=== PATIENT | male | born 1985 | race Hispanic/Latino ===

== ENCOUNTER 2021-04-06 22:58 | Emergency (ER) | payer OTHER ==
[~2021-04-06] VITALS: Ht 182.9 cm; Wt 66.2 kg
[2021-04-06 23:02] VITALS: BP 126/68
[2021-04-06] MEDS ORDERED: OCTYL 2-CYANOACRYLATE 1 EACH TP ONE ×2 (23:11→23:25)
[2021-04-06] MEDS ORDERED: L.E.T. GEL 3ML SYG TP ONE ×2 (23:12→23:33)
[2021-04-06] MEDS ORDERED: TETANUS/DIPHTHERIA TOXOID [ADULT] 0.5 ML VIAL IM ONE ×2 (23:15→23:52)
[2021-04-06] MEDS ORDERED: OCTYL 2-CYANOACRYLATE 1 EACH TP SCH (23:15)
== END 2021-04-07 00:23 ==
LOC: EDSEX → EDH 23:29
DX: S61.213A Laceration without foreign body of left middle finger without damage to nail, initial encounter (principal); S61.216A Laceration without foreign body of right little finger without damage to nail, initial encounter; W26.0XXA Contact with knife, initial encounter; Y93.89 Activity, other specified; Y92.148 Other place in prison as the place of occurrence of the external cause; Y99.8 Other external cause status
CPT/HCPCS: 12001; 90471; 90714

== ENCOUNTER 2021-04-07 01:47 | Emergency (ER) | payer OTHER ==
[~2021-04-07] VITALS: Ht 182.9 cm; Wt 65.8 kg
[2021-04-07 02:04] VITALS: BP 136/78
[2021-04-07 02:37] LABS: WHITE BLOOD COUNT (AUTO) 8.2 K/uL (4.8-10.8)
[2021-04-07 02:38] LABS: HEMATOCRIT 43.1 % (42-54); MEAN CORPUSCULAR HEMOGLOBIN 31.3 pg (27.0-33.0); MEAN CORPUSCULAR HGB CONC 33.4 g/dL (32.0-36.0); MEAN CORPUSCULAR VOLUME 93.7 fL (79-99); RED BLOOD CELL COUNT(AUTO) 4.6 MIL/uL (4.50-6.20); RED CELL DISTRIBUTION WIDTH 12.7 % (11.0-15.5)
[2021-04-07 02:46] LABS: AMPHET/METH SCREEN,URINE POSITIVE (NEGATIVE); BARBITURATE SCREEN, URINE NEGATIVE (NEGATIVE); BENZODIAZEPINES SCREEN,URINE NEGATIVE (NEGATIVE); CANNABINOID SCREEN,URINE POSITIVE (NEGATIVE); COCAINE SCREEN,URINE NEGATIVE (NEGATIVE); OPIATE SCREEN,URINE NEGATIVE (NEGATIVE); PHENCYCLIDINE SCREEN,URINE NEGATIVE (NEGATIVE)
[2021-04-07 02:48] LABS: CARBON DIOXIDE 33 mmol/L (21-32); CHLORIDE 105 mmol/L (101-111); CREATININE 0.9 mg/dL (0.5-1.5); GLOMERULAR FILTR. RATE CALC 101 mL/min (>60); GLUCOSE,RANDOM 138 mg/dL (70-105); POTASSIUM 3.3 mmol/L (3.5-5.1); SODIUM SERUM 144 mmol/L (136-145); UREA NITROGEN, BLOOD 6 mg/dL (7-18)
[2021-04-07 02:52] LABS: ALANINE AMINOTRANSFERASE 19 U/L (12-78); ALBUMIN 3.7 g/dL (3.5-5.0); ALCOHOL, BLOOD < 3 mg/dL (0-10); ASPARTATE AMINOTRANSFERASE 16 U/L (10-37); BILIRUBIN,TOTAL 0.5 mg/dL (0.2-1.0); SALICYLATE 3.6 mg/dL (2.8-20.0); TOTAL PROTEIN, SERUM 6.8 g/dL (6.0-8.3)
[2021-04-07 02:56] LABS: ACETAMINOPHEN < 1 mcg/mL (10-29)
[2021-04-07 03:21] VITALS: BP 128/72
[2021-04-07 04:40] VITALS: BP 123/68
[2021-04-07 05:30] VITALS: BP 126/71
[2021-04-07 06:07] VITALS: BP 121/68
== END 2021-04-07 07:01 ==
LOC: EDH 02:24
DX: R41.82 Altered mental status, unspecified (principal); F41.9 Anxiety disorder, unspecified; F19.10 Other psychoactive substance abuse, uncomplicated; Z65.3 Problems related to other legal circumstances
CPT/HCPCS: 36415; 80053; 80305; 82550; 85027; 99285; G0481

== ENCOUNTER 2021-10-28 16:01 | Emergency (ER) | payer OTHER ==
[~2021-10-28] VITALS: Ht 175.3 cm; Wt 68.0 kg
[2021-10-28] MEDS ORDERED: ONDANSETRON 4MG INJ ONE (16:27)
[2021-10-28] MEDS ORDERED: ACETAMINOPHEN 500 MG TABLET ONE (16:27)
[2021-10-28] MEDS ORDERED: MORPHINE 4 MG SYG ONE (16:27)
[2021-10-28] MEDS ORDERED: ONDANSETRON 4MG INJ IVP ONE (16:30)
[2021-10-28] MEDS ORDERED: ACETAMINOPHEN 500 MG TABLET PO ONE (16:30)
[2021-10-28] MEDS ORDERED: MORPHINE 4 MG SYG IVP ONE (16:30)
[2021-10-28] MEDS ORDERED: IBUP-2070 PO (18:14)
[2021-10-28 18:31] VITALS: BP 126/86
== END 2021-10-28 18:38 | disposition home or self-care (01) ==
LOC: EDH 16:01
DX: M54.50 Low back pain, unspecified (principal); G89.11 Acute pain due to trauma; M25.551 Pain in right hip; E78.00 Pure hypercholesterolemia, unspecified; Z79.899 Other long term (current) drug therapy; W01.0XXA Fall on same level from slipping, tripping and stumbling without subsequent striking against object, initial encounter; Y93.89 Activity, other specified; Y92.89 Other specified places as the place of occurrence of the external cause; Y99.8 Other external cause status
CPT/HCPCS: 74176; 96374; 96375; 99284; J2270; J2405